=== PATIENT | male | born 1980 | race Asian ===

== ENCOUNTER 2018-02-27 16:52 | Emergency (ER) | payer OTHER ==
[~2018-02-27] VITALS: Ht 160 cm; Wt 66.4 kg
[2018-02-27] MEDS ORDERED: ACETAMINOPHEN 325 MG TABLET PO ONE (17:15)
[2018-02-27 17:20] VITALS: BP 130/87
== END 2018-02-27 18:07 | disposition home or self-care (01) ==
LOC: EMS 16:53
DX: H66.93 Otitis media, unspecified, bilateral (principal); J02.9 Acute pharyngitis, unspecified
CPT/HCPCS: 99283